=== PATIENT | female | born 1965 | race Two or more races ===

== ENCOUNTER 2019-01-13 10:28 | Emergency (ER) | payer MEDICAID, OTHER ==
[~2019-01-13] VITALS: Ht 157.5 cm; Wt 89.4 kg
[2019-01-13 14:10] VITALS: BP 154/85
== END 2019-01-13 15:18 | disposition left against medical advice (07) ==
LOC: ER 10:33
DX: R05 Cough (principal); M25.562 Pain in left knee; Z53.21 Procedure and treatment not carried out due to patient leaving prior to being seen by health care provider
CPT/HCPCS: 71046; 73562